=== PATIENT | male | born 1995 | race Two or more races ===

== ENCOUNTER 2021-02-21 04:58 | Emergency (ER) | payer OTHER ==
[~2021-02-21] VITALS: Ht 177.8 cm; Wt 77.1 kg
[2021-02-21 05:02] VITALS: BP 113/68
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
--- NOTE | 2021-02-21 05:10 | NUR ---
xray at bedside
[2021-02-21] MEDS ORDERED: TDAP [DIPH/PERTUSSIS/TET] 0.5 ML VIAL IM ONE ×2 (05:12→05:30)
[2021-02-21] MEDS ORDERED: IBUPROFEN 200 MG TABLET ONE (05:12)
[2021-02-21] MEDS ORDERED: IBUPROFEN 600 MG TABLET ONE (05:12)
[2021-02-21] MEDS ORDERED: IBUPROFEN 400 MG TABLET PO ONE (05:30)
== END 2021-02-21 05:26 ==
LOC: ER 05:01
DX: S60.221A Contusion of right hand, initial encounter (principal); Z60.2 Problems related to living alone; W18.39XA Other fall on same level, initial encounter; Y93.89 Activity, other specified; Y92.89 Other specified places as the place of occurrence of the external cause; Y99.8 Other external cause status
CPT/HCPCS: 73120-TC; 90715